=== PATIENT | male | born 1990 | race Caucasian/White ===

== ENCOUNTER 2020-03-23 13:07 | Outpatient (CLI) | payer OTHER ==
[~2020-03-23 13:07] MED LIST: Iopamidol 370 76% 100 ML VIAL ONE
--- NOTE | 2020-03-23 16:56 | CT ---
CT OF THE NECK 03/23/20 COMPARISON: None. HISTORY: Posterior palpable abnormality and difficulty swallowing. TECHNIQUE: Axial CT imaging at 3 mm intervals from skull base through lung apices with IV contrast. Coronal and sagittal reformatted imaging obtained. FINDINGS: There is mild mucosal thickening involving the ethmoid air cells bilaterally. The retroantral fat and the parapharyngeal fat appears clear bilaterally. The parotid glands and submandibular glands appear grossly unremarkable. Region of the tonsillar pillars, epiglottis and pre-epiglottic fat, hyoid bone, thyroid cartilage, cr icoid cartilage, thyroid gland, and level of glottis appear grossly unremarkable. The visualized lung apices appear within normal limits. The vascular structures of the neck appear patent. No enlarged lymph nodes are noted within the neck. A needle cap [place] the area of palpable concern which is in the posterior neck at the axial level of the C1-2 articulation. In this region, there is no discrete mass or fluid collection. Review of the osseous structures demonstrates no acute osseous abnormality. IMPRESSION: Grossly unremarkable CT examination of the neck. POS: [facility]
== END 2020-03-23 13:08 | disposition home or self-care (01) ==
LOC: BICCT 13:07
PROVIDERS: ATTEND Internal Medicine
DX: R13.10 Dysphagia, unspecified (principal); M54.2 Cervicalgia
CPT/HCPCS: 70491; Q9967